=== PATIENT | female | born 1995 | race Caucasian/White ===

== ENCOUNTER 2024-07-30 06:27 | Emergency (ER) | payer OTHER ==
[~2024-07-30] VITALS: Ht 177.8 cm; Wt 108.9 kg
[2024-07-30] MEDS ORDERED: MORPHINE SULFATE 4 MG/ML VIAL IV ONE (07:15)
[2024-07-30] MEDS ORDERED: AMP/SULBACTAM SOD 3 GM in SODIUM CHLORIDE 0.9% 100 ML IV ONE (07:15)
[2024-07-30] MEDS ORDERED: AMP/SULBACTAM SOD 3 GM VIAL IV ONE (07:21)
[2024-07-30 07:31] LABS: BASOPHILS 0.5 % (0-2); EOSINOPHILS 0.5 % (0-6); HEMATOCRIT 42.1 % (35.0-50.0); HEMOGLOBIN 14.1 g/dL (12.0-18.0); LYMPHOCYTES 25.3 % (24-44); MCH 26.5 (27-36); MCHC 33.4 g/dl (30-36); MCV 79.4 fl (81-99); MONOCYTES 5.6 % (0-12); NEUTROPHILS 68.1 % (39-80); PLATELET COUNT 450 K/uL (140-440)
[2024-07-30 07:46] LABS: ALBUMIN 3.8 g/dL (3.4-5.0); ALBUMIN/GLOBULIN RATIO 0.84 (1.1-2.4); ANION GAP 14.9 (7-21); BILIRUBIN, TOTAL 0.6 mg/dL (0.2-1.0); BUN/CREATININE RATIO 11.11 (6.0-28.6); CALCIUM 9.8 mg/dL (8.5-10.1); CREATININE, SERUM 0.99 mg/dL (0.55-1.02); POTASSIUM 3.9 mmol/L (3.5-5.1); PROTEIN, TOTAL 8.3 g/dL (6.4-8.2)
[2024-07-30] MEDS ORDERED: CEPHALEXIN500 M1 PO (08:38)
[2024-07-30] MEDS ORDERED: GENTAMICIN SULFA5 ML OS (08:38)
[2024-07-30] MEDS ORDERED: CEFTRIAXONE/SODIUM CHLORIDE 2 GM/100 ML PIGGYBACK IV ONE (08:45)
[2024-07-30 09:13] VITALS: BP 137/83
== END 2024-07-30 09:20 | disposition home or self-care (01) ==
LOC: ED 06:27
PROVIDERS: Family Medicine
DX: L03.211 Cellulitis of face (principal)
CPT/HCPCS: 36415; 70487; 80053; 83605; 85025; 86140; 87040; 99284-25; J0295; J0696; J2270; Q9967